=== PATIENT | female | born 1995 | race Caucasian/White ===

== ENCOUNTER 2020-04-15 13:51 | Emergency (ER) | payer BC ==
[~2020-04-15] VITALS: Ht 165.1 cm; Wt 90.7 kg
[2020-04-15] MEDS ORDERED: BACITRACIN ZINC 15 GM OINT TOP STA (15:26)
[2020-04-15] MEDS ORDERED: PREDNISONE20 MG PO (15:31)
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
[2020-04-15] MEDS ORDERED: BACITRACIN ZINC 0.9GM TP ONE (15:50)
[2020-04-15 16:08] VITALS: BP 133/88
--- OUTSIDE RECORDS SUMMARY | 2020-04-21 18:06 | XMS REPORT | Continuity of Care Document ---
Author Author [facility] t Organization [facility] Address [address] [place] [address] Phone Unavailable Care Team Providers Care Medical Research Assistant Name Role Phone Jed Vera DO PCP [phone] NAYE VALENTINE M.D. Attphys Unavailable RICHARDS, NICKOLAS, INVESTIGATIONS DIRECTOR Attphys Unavailable SIENNA VERA, COMMUNICATIONS SCIENTIST Attphys Unavailable VAIL, STU, INVESTIGATIONS DIRECTOR Attphys Unavailable Payers Payer Name Policy Type Policy Number Effective Date Expiration Date S ource Problems Condition Name Condition Details Condition Category Status Onset Date Resolution Date Last Treatment Date Treating Clinician Comments Source Closed fracture of radius Closed fracture of radius Disease Ac tive 2017-03-04 00:00:00 Baxter Andrzej smith Iron deficiency anemia due to chronic blood loss Iron deficiency anemia due to chronic blood loss Disease Active 2017-03-04 00:00:00 Sahil Hawk History of suicide attempt History of suicide attempt Problem Resolved [facility] Dizziness Dizziness Problem [facility] Frequent headaches Frequent headaches Problem Active [facility] Chest pain, atypical Chest pain, atypical Problem Active [facility] Heartburn Heartburn Problem Active [facility] Belching Belching Problem Active [facility] Fatigue Fatigue Problem [facility] Anemia Anemia Problem [facility] Iron deficiency anemia Iron deficiency anemia Problem Active [facility] Insomnia Insomnia Problem Active [facility] Overweight and obesity Overweight and obesity Problem Active [facility] Anxiety and depression Anxiety and depression Problem Active [facility] Major depressive disorder, recurrent episode, moderate with anxious distress Major depressive disorder, recurrent episode, moderate with anxious distress Problem Active [facility] Bipolar depression Bipolar depression Problem Active [facility] Allergies, Adverse Reactions, Alerts Allergy Name Allergy Type Status Severity Reaction(s) Onset Date Inacti ve Date Treating Clinician Comments Source No Known Allergies DA Active U 2018-07-15 00:00:00 [facility] Family History Family Member Diagnosis Comments Start Date Stop Date Source Unknown Family Member Family history of Allergic dermatitis Family Hi story [facility] Unknown Family Member Family history of Anxiety Family History [facility] Unknown Family Member Family history of depression Family History [facility] Unknown Family Member Family history of suicide attempt Family Histor y [facility] Unknown Family Member Family history of diabetes mellitus Family Hist ory [facility] Father Family history of diabetes mellitus [facility] Social History Social Habit Start Date Stop Date Quantity Comments Source Sex Assigned At Ida mckeon [employer] Alcohol intake 2017-03-04 00:00:00 2017-03-04 00:00:00 Current drinker of alcohol (finding) Sahil Hawk Alcohol Comment 2017-02-28 00:00:00 2017-02-28 00:00:00 occasional Sahil Hawk Smoking Status Start Date Stop Date Source Never smoker Sahil suero Medications Ordered Medication Name Filled Medication Name Start Date Stop Da te Current Medication? Ordering Clinician Indication Dosage Frequency Signature (SIG) Comments Components Source lamoTRIgine 100 MG Oral Tablet lamoTRIgine 100 MG Oral Table t 2019-01-14 00:00:00 Yes NAYE VALENTINE M.D. QD TAKE 1 TABLET DAILY . [facility] Venlafaxine HCl ER 150 MG Oral Capsule Extended Releas e 24 Hour Venlafaxine HCl ER 150 MG Oral Capsule Extended Release 24 Hour 2018-03-11 00:00:00 Yes NAYE VALENTINE M.D. TAKE 1 CAPSULE BY MOUTH EVERY DAY [facility] meloxicam (MOBIC) 7.5 mg tablet 2017-02-28 00:00:00 Yes 7.5mg Q24H Take 1 tablet (7.5 mg total) by mouth daily as needed for mild pain for up to 20 doses. Sahil Hawk Immunizations Ordered Immunization Name Filled Immunization Name Date Status Comments Source Influenza, seasonal, injectable, preservative free 2003-04-07 00:00:00 Completed [facility] DTaP, unspecified formulation 2002-01-12 00:00:00 Complete d [facility] M-M-R II Subcutaneous Injectable 2002-01-12 00:00:00 Compl eted [facility] Ipol Injection Injectable 2002-01-12 00:00:00 Completed [facility] Vital Signs Vital Name Observation Time Observation Value Comments Source BP Systolic 2019-01-14 12:41:00 132 mm[Hg] Location: LUE; Positi on: Sitting [facility] BP Diastolic 2019-01-14 12:41:00 93 mm[Hg] Location: LUE; Positi on: Sitting [facility] Height 2019-01-14 12:41:00 65 [in_us] [facility] Weight 2019-01-14 12:41:00 181 [lb_av] [facility] Body Mass Index Calculated 2019-01-14 12:41:00 30.12 kg/m2 [facility] Heart Rate 2019-01-14 12:41:00 116 /min Location: L Brachial Artery; Quality: Normal [facility] Respiration Rate 2019-01-14 12:41:00 16 /min Quality: Normal [facility] O2 SAT 2019-01-14 12:41:00 99 % Source: RA [facility] BP Systolic 2018-09-12 14:05:00 133 mm[Hg] Location: KARINAE; Positi on: Sitting [facility] BP Diastolic 2018-09-12 14:05:00 89 mm[Hg] Location: LUE; Positi on: Sitting [facility] Height 2018-09-12 14:05:00 65 [in_us] [facility] Weight 2018-09-12 14:05:00 179 [lb_av] [facility] Body Mass Index Calculated 2018-09-12 14:05:00 29.79 kg/m2 [facility] Temperature 2018-09-12 14:05:00 98.3 [degF] Method: Oral [facility] Heart Rate 2018-09-12 14:05:00 98 /min Location: L Radial; Q uality: Normal [facility] Respiration Rate 2018-09-12 14:05:00 16 /min Quality: Normal [facility] O2 SAT 2018-09-12 14:05:00 98 % Source: RA [facility] BP Systolic 2018-03-11 10:10:00 140 mm[Hg] Location: SHIRA Positi on: Sitting [facility] BP Diastolic 2018-03-11 10:10:00 87 mm[Hg] Location: ERICK; Positi on: Sitting [facility] Height 2018-03-11 10:10:00 65 [in_us] [facility] Weight 2018-03-11 10:10:00 177.25 [lb_av] [facility] Body Mass Index Calculated 2018-03-11 10:10:00 29.5 kg/m2 [facility] Temperature 2018-03-11 10:10:00 97.5 [degF] Method: Temporal [facility] Heart Rate 2018-03-11 10:10:00 97 /min [facility] Respiration Rate 2018-03-11 10:10:00 16 /min [facility] Procedures Procedure Date / Time Performed Performing Clinician Sour e History of Ear Pressure Equalization Tube, Insertion [facility] Plan of Care Planned Activity Planned Date Details Comments Source Future Scheduled Test 2020-01-16 00:00:00 INFLUENZA VACCINE [code = INFLUENZA VACCINE] Baxter [employer] Future Scheduled Test 2018 00:00:00 Screening for alicia gnant neoplasm of cervix (procedure) [code = 238112675] [facility] Future Scheduled Test 2013 00:00:00 CHLAMYDIA SCREENIN G [code = CHLAMYDIA SCREENING] Baxter [employer] Encounters Start Date/Time End Date/Time Encounter Type Admission Type Attendi [facility] Facility Care Department Encounter ID Source 2019-07-27 14:00:00 2019-07-27 14:00:00 Appointment; NAYE VALENTINE M.D. HAN, SHAOJIE, M.D. [facility] [id number] [facility] 2019-04-28 16:00:00 2019-04-28 16:00:00 Appointment; NAYE VALENTINE M.D. HAN, SHAOJIE, M.D. [facility] [id number] [facility] 2019-02-19 12:00:00 2019-02-19 12:00:00 Appointment; DREW RICHARDSISE, INVESTIGATIONS DIRECTOR RICHARDS, NICKOLAS, INVESTIGATIONS DIRECTOR [facility] [id number] [facility] 2019-01-14 12:00:00 2019-01-14 12:00:00 Appointment; NAYE VALENTINE M.D. HAN, SHAOJIE, M.D. [facility] [id number] 2018-11-03 13:00:00 2018-11-03 13:00:00 Appointment; DREW RICHARDSISE, INVESTIGATIONS DIRECTOR RICHARDS, NICKOLAS, INVESTIGATIONS DIRECTOR [facility] [id number] [facility] 2018-10-06 12:00:2018-10-06 12:00:00 Appointment; NICKOLAS RICHARDS INVESTIGATIONS DIRECTOR DREW RICHARDSISE, INVESTIGATIONS DIRECTOR [facility] [id number] [facility] 2018-09-12 13:30:00 2018-09-12 13:30:00 Appointment; NAYE VALENTINE M.D. HAN, SHAOJIE, M.D. [facility] [id number] [facility] 2018-06-02 11:00:00 2018-06-02 11:00:00 Appointment; NAYE VALENTINE M.D. HAN, SHAOJIE, M.D. [facility] [id number] [facility] 2018-05-13 13:00:00 2018-05-13 13:00:00 Appointment; NAYE VALENTINE M.D. HAN, SHAOJIE, M.D. [facility] [id number] [facility] 2018-04-03 12:00:00 2018-04-03 12:00:00 Appointment; NICKOLAS RICHARDS, INVESTIGATIONS DIRECTOR RICHARDS, NICKOLAS, INVESTIGATIONS DIRECTOR [facility] [id number] [facility] 2018-03-11 10:00:00 2018-03-11 10:00:00 Appointment; NAYE VALENTINE M.D. HAN, SHAOJIE, M.D. [facility] [id number] [facility] 2016-12-20 18:00:00 2016-12-20 18:00:00 Appointment; SIENNA VERA, COMMUNICATIONS SCIENTIST SIENNA VERA, COMMUNICATIONS SCIENTIST UTP [facility] [id number] [facility] 2016-12-12 14:00:00 2016-12-12 14:00:00 Appointment; SIENNA VERA, COMMUNICATIONS SCIENTIST SIENNA VERA, COMMUNICATIONS SCIENTIST UTP [facility] [id number] [facility] 2016-12-04 14:00:00 2016-12-04 14:00:00 Appointment; NAYE VALENTINE M.D. HAN, SHAOJIE, M.D. [facility] [id number] [facility] 2016-11-27 08:00:00 2016-11-27 08:00:00 Appointment; RIKY STU, INVESTIGATIONS DIRECTOR VAIL, STU, INVESTIGATIONS DIRECTOR [facility] [id number] [facility] 2016-10-30 08:00:00 2016-10-30 08:00:00 Appointment; VALARA STU, INVESTIGATIONS DIRECTOR VAIL, STU, INVESTIGATIONS DIRECTOR [facility] [id number] [facility] 2016-10-11 08:00:00 2016-10-11 08:00:00 Appointment; VAIL STU, INVESTIGATIONS DIRECTOR VAIL, STU, INVESTIGATIONS DIRECTOR [facility] [id number] [facility] 2016-09-27 08:00:00 2016-09-27 08:00:00 Appointment; RIKY STU, INVESTIGATIONS DIRECTOR VAIL, STU, INVESTIGATIONS DIRECTOR [facility] [id number] [facility] 2016-09-19 15:00:00 2016-09-19 15:00:00 Appointment; NAYE VALENTINE M.D. HAN, SHAOJIE, M.D. [facility] [id number] [facility] 2016-09-07 15:30:00 2016-09-07 15:30:00 Appointment; NICKOLAS RICHARDS LCSW RAMOS, DENISE, LCSW [facility] [id number] [facility] 2016-07-24 08:00:00 2016-07-24 08:00:00 Appointment; NAYE VALENTINE M.D. HAN, SHAOJIE, M.D. [facility] [id number] [facility] Results Test Description Test Time Test Comments Results Result Comments Source GLUBED 2018-07-15 11:23:00 Test Item GLUBED (test code = GLUBED) 87 mg/dL 74-106 N Performed by certified charging machine operator at [facility] [id number] 04:56:00* Test Item Value Reference Range Interpretation Comments SALICYLATE (test code = KIANA) 16.7 mg/dL 2.8-20.0 N [id number] 04:56:00* Test Item Value Reference Range Interpretation Comments ACETAMINOPHEN (test code = ACET) 14.0 mcg/mL 10-30 N A RANGE OF 10-30 mcg/mL IS A THERAPEUTIC RANGE. TOXIC CONCENTRATIONS: >150 mcg/mL AT 4 HOURS AFTER INGESTION >= 50 mcg/mL AT 12 HOURS AFTER INGESTION URINALYSIS [id number] 03:12:00* Test Item Value Reference Range Interpretation Comments UA COLOR (test code = COLU) STRAW YELLOW UA APPEARANCE (test code = APPU) CLEAR CLEAR UA GLUCOSE DIPSTICK (test code = DGLUU) NEGATIVE mg/dL NEGATIVE UA BILIRUBIN DIPSTICK (test code = BILU) NEGATIVE mg/dL NEGATIVE UA KETONE DIPSTICK (test code = KETU) 5 (Trace) mg/dL NEGATIVE A UA SPECIFIC GRAVITY (test code = SGU) 1.014 1.001-1.035 UA BLOOD DIPSTICK (test code = LUIS) Negative NEGATIVE UA PH DIPSTICK (test code = AMCEY) 6.0 5.0-8.0 UA PROTEIN DIPSTICK (test code = PROU) Negative mg/dL NEGATIVE UA UROBILINIOGEN DIPSTICK (test code = URO) NEGATIVE mg/dL NEGATIVE UA NITRITE DIPSTICK (test code = KYLE) NEGATIVE NEGATIVE UA LEUKOCYTE ESTERASE W REFLEX (test code = LEUUR) 1+ NEG ATIVE A UA WBC (test code = WBCU) 6-10 #/HPF 0-5 A UA RBC (test code = RBCU) 0-2 #/HPF 0-5 UA EPITHELIAL CELLS (test code = EPIU) FEW per HPF FEW UA MUCUS (test code = MUCU) FEW #/LPF FEW Urine Source? Clean CatchDRUGS OF ABUSE SCREEN [id number] 03:12:00* Test Item Value Reference Range Interpretation Comments URN COCAINE (test code = COCAURN) NEGATIVE <300 ng/mL URN CANNABINOIDS (test code = CANNABURN) NEGATIVE <50 ng/mL URN AMPHETAMINE (test code = AMPHETURN) NEGATIVE <1000 ng/mL URN BARBITURATE (test code = BARBITURN) NEGATIVE <200 ng/mL URN BENZODIAZEPINE (test code = BENZOURN) NEGATIVE <200 ng/mL URN OPIATES (test code = OPIATURN) NEGATIVE <300 ng/mL URN PHENCYCLIDINE (PCP) (test code = PHENCURN) NEGATIVE <25 ng/ mL URN METHADONE (test code = METHAURN) NEGATIVE <300 ng/mL Urine Source? Clean CatchURINALYSIS [id number] 03:04:00* Test Item Value Reference Range Interpretation Comments UA COLOR (test code = COLU) STRAW YELLOW UA APPEARANCE (test code = APPU) CLEAR CLEAR UA GLUCOSE DIPSTICK (test code = DGLUU) NEGATIVE mg/dL NEGATIVE UA BILIRUBIN DIPSTICK (test code = BILU) NEGATIVE mg/dL NEGATIVE UA KETONE DIPSTICK (test code = KETU) 5 (Trace) mg/dL NEGATIVE A UA SPECIFIC GRAVITY (test code = SGU) 1.014 1.001-1.035 UA BLOOD DIPSTICK (test code = LUIS) Negative NEGATIVE UA PH DIPSTICK (test code = MACEY) 6.0 5.0-8.0 UA PROTEIN DIPSTICK (test code = PROU) Negative mg/dL NEGATIVE UA UROBILINIOGEN DIPSTICK (test code = URO) NEGATIVE mg/dL NEGATIVE UA NITRITE DIPSTICK (test code = KYLE) NEGATIVE NEGATIVE UA LEUKOCYTE ESTERASE W REFLEX (test code = LEUUR) 1+ NEG ATIVE A UA WBC (test code = WBCU) 6-10 #/HPF 0-5 A UA RBC (test code = RBCU) 0-2 #/HPF 0-5 UA EPITHELIAL CELLS (test code = EPIU) FEW per HPF FEW UA MUCUS (test code = MUCU) FEW #/LPF FEW Urine Source? Clean CatchDRUGS OF ABUSE SCREEN [id number] 03:04:00* Test Item Value Reference Range Interpretation Comments URN COCAINE (test code = COCAURN) <300 ng/mL URN CANNABINOIDS (test code = CANNABURN) <50 ng/mL URN AMPHETAMINE (test code = AMPHETURN) <1000 ng/mL URN BARBITURATE (test code = BARBITURN) <200 ng/mL URN BENZODIAZEPINE (test code = BENZOURN) <200 ng/mL URN OPIATES (test code = OPIATURN) <300 ng/mL URN PHENCYCLIDINE (PCP) (test code = PHENCURN) <25 ng/ mL URN METHADONE (test code = METHAURN) <300 ng/mL Urine Source? Clean CatchBASIC METABOLIC [id number] 02:16:00* Test Item Value Reference Range Interpretation Comments SODIUM (test code = NA) 137 mmol/L 136-145 N POTASSIUM (test code = K) 3.0 mmol/L 3.5-5.1 L CHLORIDE (test code = CL) 106.0 mmol/L 98-107 N CARBON DIOXIDE (test code = CO2) 19.0 mmol/L 21-32 L ANION GAP (test code = GAP) 15.0 10-20 N GLUCOSE (test code = GLU) 126 mg/dL 74-106 H BLOOD UREA NITROGEN (test code = BUN) 11 mg/dL 7-18 N GLOMERULAR FILTRATION RATE (test code = GFR) > 60 mL/min >=60 Estimated GFR by using Modified MDRD formula.Chronic kidney disease is defined as either kidney damageor GFR <60 mL/min/1.73 m2 for >3 months. CREATININE (test code = CREAT) 0.90 mg/dL 0.55-1.02 N Note change in reference range due to change in reagent. BUN/CREATININE RATIO (test code = BUN/CREA) 12.2 10-20 N CALCIUM (test code = CA) 8.2 mg/dL 8.5-10.1 L HEPATIC FUNCTION [id number] 02:16:00* Test Item Value Reference Range Interpretation Comments TOTAL PROTEIN (test code = PROT) 7.4 gram/dL 6.4-8.2 N ALBUMIN (test code = ALB) 3.4 g/dL 3.4-5.0 N GLOBULIN (test code = GLOB) 4.0 gram/dL 2.7-4.2 N ALBUMIN/GLOBULIN RATIO (test code = A/G) 0.9 0.75-1.50 N BILIRUBIN TOTAL (test code = BILT) 0.10 mg/dL 0.0-1.0 N BILIRUBIN DIRECT (test code = BILD) 0.06 mg/dL 0.0-0.20 N SGOT/AST (test code = AST) 15 IUnit/L 15-37 N SGPT/ALT (test code = ALT) 18 IUnit/L 12-78 N ALKALINE PHOSPHATASE TOTAL (test code = ALKP) 88 IUnit/L 45-117 N Note change in reference range due to change in reagent. HCG SERUM [id number] 02:16:00* Test Item Value Reference Range Interpretation Comments HCG SERUM QUAL (test code = HCGQL) NEGATIVE NEGATIVE This HCGQL test is NOT applicable for MALE patients.Check with nurse about probable order error.If Tumor Marker Test needed, nurse should order test "HCGTU"(Test #550.99544) [id number] 02:16:00* Test Item Value Reference Range Interpretation Comments ACETAMINOPHEN (test code = ACET) 42.8 mcg/mL 10-30 H A RANGE OF 10-30 mcg/mL IS A THERAPEUTIC RANGE. TOXIC CONCENTRATIONS: >150 mcg/mL AT 4 HOURS AFTER INGESTION >= 50 mcg/mL AT 12 HOURS AFTER INGESTION [id number] 02:16:00* Test Item Value Reference Range Interpretation Comments SALICYLATE (test code = KIANA) 21.5 mg/dL 2.8-20.0 H [id number] 02:16:00* Test Item Value Reference Range Interpretation Comments ALCOHOL (test code = ALC) 4 mg/dL 0.0-3.0 H -- INTERPRETIVE DATA NOTE: POSITIVE SCREENING RESULTS SHOULD BE CONSIDERED PRESUMPTIVE.WHEN COLLECTED FOR MEDICAL PURPOSES ONLY. SPECIMEN WILL NOTBE COLLECTED BY CHAIN OF CUSTODY.IF A CONFIRMATION OF POSITIVE RESULTS IS DESIRED, ACONFIRMATION TEST MUST BE REQUESTED BY THE PHYSICIAN AT ANADDITIONAL CHARGE TO THE PATIENT. BASIC METABOLIC [id number] 02:07:00* Test Item Value Reference Range Interpretation Comments SODIUM (test code = NA) mmol/L 136-145 POTASSIUM (test code = K) mmol/L 3.5-5.1 CHLORIDE (test code = CL) mmol/L 98-107 CARBON DIOXIDE (test code = CO2) mmol/L 21-32 ANION GAP (test code = GAP) 10-20 GLUCOSE (test code = GLU) mg/dL 74-106 BLOOD UREA NITROGEN (test code = BUN) mg/dL 7-18 GLOMERULAR FILTRATION RATE (test code = GFR) mL/min >=60 CREATININE (test code = CREAT) mg/dL 0.55-1.02 BUN/CREATININE RATIO (test code = BUN/CREA) 10-20 CALCIUM (test code = CA) mg/dL 8.5-10.1 HEPATIC FUNCTION [id number] 02:07:00* Test Item Value Reference Range Interpretation Comments TOTAL PROTEIN (test code = PROT) gram/dL 6.4-8.2 ALBUMIN (test code = ALB) g/dL 3.4-5.0 GLOBULIN (test code = GLOB) gram/dL 2.7-4.2 ALBUMIN/GLOBULIN RATIO (test code = A/G) 0.75-1.50 BILIRUBIN TOTAL (test code = BILT) mg/dL 0.0-1.0 BILIRUBIN DIRECT (test code = BILD) mg/dL 0.0-0.20 SGOT/AST (test code = AST) IUnit/L 15-37 SGPT/ALT (test code = ALT) IUnit/L 12-78 ALKALINE PHOSPHATASE TOTAL (test code = ALKP) IUnit/L 45-117 HCG SERUM [id number] 02:07:00* Test Item Value Reference Range Interpretation Comments HCG SERUM QUAL (test code = HCGQL) NEGATIVE NEGATIVE This HCGQL test is NOT applicable for MALE patients.Check with nurse about probable order error.If Tumor Marker Test needed, nurse should order test "HCGTU"(Test #550.61564) [id number] 02:07:00* Test Item Value Reference Range Interpretation Comments ACETAMINOPHEN (test code = ACET) mcg/mL 10-30 [id number] 02:07:00* Test Item Value Reference Range Interpretation Comments SALICYLATE (test code = KIANA) mg/dL 2.8-20.0 [id number] 02:07:00* Test Item Value Reference Range Interpretation Comments ALCOHOL (test code = ALC) mg/dL 0-3 BASIC METABOLIC [id number] 02:07:00* Test Item Value Reference Range Interpretation Comments SODIUM (test code = NA) 137 mmol/L 136-145 N POTASSIUM (test code = K) 3.0 mmol/L 3.5-5.1 L CHLORIDE (test code = CL) 106.0 mmol/L 98-107 N CARBON DIOXIDE (test code = CO2) mmol/L 21-32 ANION GAP (test code = GAP) 10-20 GLUCOSE (test code = GLU) mg/dL 74-106 BLOOD UREA NITROGEN (test code = BUN) mg/dL 7-18 GLOMERULAR FILTRATION RATE (test code = GFR) mL/min >=60 CREATININE (test code = CREAT) mg/dL 0.55-1.02 BUN/CREATININE RATIO (test code = BUN/CREA) 10-20 CALCIUM (test code = CA) mg/dL 8.5-10.1 HEPATIC FUNCTION [id number] 02:07:00* Test Item Value Reference Range Interpretation Comments TOTAL PROTEIN (test code = PROT) gram/dL 6.4-8.2 ALBUMIN (test code = ALB) g/dL 3.4-5.0 GLOBULIN (test code = GLOB) gram/dL 2.7-4.2 ALBUMIN/GLOBULIN RATIO (test code = A/G) 0.75-1.50 BILIRUBIN TOTAL (test code = BILT) mg/dL 0.0-1.0 BILIRUBIN DIRECT (test code = BILD) mg/dL 0.0-0.20 SGOT/AST (test code = AST) IUnit/L 15-37 SGPT/ALT (test code = ALT) IUnit/L 12-78 ALKALINE PHOSPHATASE TOTAL (test code = ALKP) IUnit/L 45-117 HCG SERUM [id number] 02:07:00* Test Item Value Reference Range Interpretation Comments HCG SERUM QUAL (test code = HCGQL) NEGATIVE NEGATIVE This HCGQL test is NOT applicable for MALE patients.Check with nurse about probable order error.If Tumor Marker Test needed, nurse should order test "HCGTU"(Test #550.80571) [id number] 02:07:00* Test Item Value Reference Range Interpretation Comments ACETAMINOPHEN (test code = ACET) mcg/mL 10-30 [id number] 02:07:00* Test Item Value Reference Range Interpretation Comments SALICYLATE (test code = KIANA) mg/dL 2.8-20.0 [id number] 02:07:00* Test Item Value Reference Range Interpretation Comments ALCOHOL (test code = ALC) mg/dL 0-3 CBC W/O [id number] 01:54:00* Test Item Value Reference Range Interpretation Comments WHITE BLOOD CELL (test code = WBC) 14.3 K/mm3 4.5-12.5 H RED BLOOD CELL (test code = RBC) 4.92 mill/mm3 3.7-5.2 N HEMOGLOBIN (test code = HGB) 12.6 gram/dL 11.5-15.5 N HEMATOCRIT (test code = HCT) 38.5 % 36.0-46.0 N MEAN CELL VOLUME (test code = MCV) 78.3 fL 80-98 L MEAN CELL HGB (test code = MCH) 25.6 picogram 27.0-33.0 L MEAN CELL HGB CONCETRATION (test code = MCHC) 32.7 gram/dL 33.0-36. 0 L RED CELL DISTRIBUTION WIDTH (test code = RDW) 13.8 % 11.6-16. 2 N PLATELET COUNT (test code = PLT) 341 K/mm3 150-450 N MEAN PLATELET VOLUME (test code = MPV) 9.7 fL 6.7-11.0 N
--- OUTSIDE RECORDS SUMMARY | 2020-04-21 18:06 | XMS REPORT | Clinical Summary ---
Author Author [facility] Organization [facility] Address Unknown Phone Unavailable Care Team Providers Care Buggy Loader Name Role Phone Teodoro Vera DO PCP [phone] Allergies No Known Active Allergies Medications End Date Status Medication Sig Dispensed Refills Start Date Active meloxicam (MOBIC) 7.5 mg Take 1 tablet 20 tablet 0 tablet (7.5 mg 7 total) by mouth daily as needed for mild pain for up to 20 doses. Active Problems Problem Noted Date Closed fracture of radius 03/04/2017 Iron deficiency anemia due to chronic blood loss Surgical History Surgery Date Site/Laterality Comments TYMPANOSTOMY TUBE PLACEMENT Medical History Medical History Date Comments Depression Anxiety Social History Date Tobacco Use Types Packs/Day Years Used Never Smoker Drinks/Week oz/Week Comments Alcohol Use occasional Yes Sex Assigned at Date Recorded Not on file Last Filed Vital Signs Not on file Plan of Treatment Health Maintenance Due Date Last Done Comments CHLAMYDIA SCREENING 2013 CERVICAL CANCER SCREENING 2018 INFLUENZA VACCINE 01/16/2020 Results Not on fileafter 04/15/2019 Insurance Type Payer Benefit Subscriber ID Effective Phone Address Plan / Dates Group PPO BCBS BCBS [id number] 2016-[id number] CHOICE resent PPO/KEENA [employer]ERAS PPO Advance Directives For more information, please contact: [phone] Patient Employee Counselor Explanation Type Date Recorded Advance Directives, Living Will and Medical Power of Engineering Operator
== END 2020-04-15 16:04 | disposition home or self-care (01) ==
LOC: FSED 14:05
DX: T23.101A Burn of first degree of right hand, unspecified site, initial encounter (principal); T49.8X1A Poisoning by other topical agents, accidental (unintentional), initial encounter; Y93.E1 Activity, personal bathing and showering; Y92.008 Other place in unspecified non-institutional (private) residence as the place of occurrence of the external cause
CPT/HCPCS: 99283